=== PATIENT | female | born 1985 | race Hispanic/Latino ===

== ENCOUNTER → 2023-04-12 | Outpatient (REF) | payer OTHER ==
[2023-04-12 17:29] LABS: BASO % 0.3 % (0.0-1.0); EOS # 0.1 10^3/uL (0.0-0.5); HEMATOCRIT 31.1 % (36.0-47.0); HEMOGLOBIN 9.1 g/dl (12.0-15.5); LYMPH # 1.8 10^3/uL (1.5-5.0); LYMPH % 26.1 % (24.0-44.0); MEAN CORPUSCULAR HEMOGLOBIN 20.4 pg (27.0-33.0); MEAN CORPUSCULAR HGB CONC 29.3 g/dl (32.0-36.5); MEAN CORPUSCULAR VOLUME 69.9 fl (80.0-96.0); MONO # 0.6 10^3/uL (0.0-0.8); MONO % 8.2 % (2.0-8.0); NEUTROPHILS # 4.3 10^3/uL (1.5-8.5); NEUTROPHILS % 64.3 % (36.0-66.0); PLATELET COUNT, AUTOMATED 340 10^3/uL (150-450); RED BLOOD COUNT 4.45 10^6/uL (4.00-5.40); WHITE BLOOD COUNT 6.7 10^3/uL (4.0-10.0)
[2023-04-12 17:47] LABS: ALBUMIN 3.8 G/DL (3.2-5.2); ALKALINE PHOSPHATASE 62 U/L (46-116); ALT/SGPT 16 U/L (7.0-40); AST/SGOT 16 U/L (<34); BILIRUBIN,TOTAL 0.4 MG/DL (0.3-1.2); BLOOD UREA NITROGEN 8 MG/DL (9-23); CALCIUM LEVEL 8.7 MG/DL (8.5-10.1); CARBON DIOXIDE LEVEL 24 MMOL/L (20-31); CHLORIDE LEVEL 109 MMOL/L (98-107); GLOMERULAR FILTRATION RATE > 60.0 (>60); GLUCOSE, FASTING 71 MG/DL (60-100); IRON (FE) 11 UG/DL (50-170); PERCENT SATURATION 2.8 % (13.2-45.0); POTASSIUM SERUM 4.5 MMOL/L (3.5-5.1); SODIUM LEVEL 141 MMOL/L (136-145); TOTAL IRON BINDING CAPACITY 395 UG/DL (250-425); TOTAL PROTEIN 7.3 G/DL (5.7-8.2)
[2023-04-12 17:48] LABS: FERRITIN < 0.9 NG/ML (7.3-270.7); FREE T4 0.88 NG/DL (0.89-1.76)
[2023-04-12 17:49] LABS: FOLATE > 24.0 NG/ML (>5.4); THYROID STIMULATING HORMONE 2.052 uIU/ML (0.55-4.78); VITAMIN B12 LEVEL 383 PG/ML (211-911)
[2023-04-12 17:52] LABS: THYROID PEROXIDASE ANTIBODY 505 U/ML (<60.0)
[2023-04-13 11:44] LABS: CHOLESTEROL LEVEL 179 MG/DL (<200); CHOLESTEROL RISK RATIO 3.32 (<5); HDL CHOLESTEROL 53.9 MG/DL (>40); LDL CHOLESTEROL 109.9 MG/DL (<100); NON-HDL-C 125.1 MG/DL; TRIGLYCERIDES LEVEL 76 MG/DL (<150)
[2023-04-13 12:38] LABS: HEMOGLOBIN A1c 5.6 % (4.0-6.0)
== END ==
LOC: M LAB REF 16:17
PROVIDERS: ATTEND Nurse Practitioner Family
DX: E04.9 Nontoxic goiter, unspecified (principal); Z11.1 Encounter for screening for respiratory tuberculosis

== ENCOUNTER → 2023-04-25 | Outpatient (CLI) | payer OTHER | LOC: M WHC 14:56 | PROVIDERS: ATTEND Nurse Practitioner Family | DX: E04.9 Nontoxic goiter, unspecified (principal) ==

== ENCOUNTER → 2023-05-12 | Outpatient (CLI) | payer OTHER ==
[2023-05-12 15:25] LABS: HIV 1&2 SCREEN NEGATIVE (NEGATIVE)
[2023-05-12 15:28] LABS: CHLAMYDIA DNA AMPLIFICATION NEGATIVE (NEGATIVE); GC DNA AMPLIFICATION NEGATIVE (NEGATIVE)
[2023-05-12 15:33] LABS: HEPATITIS B CORE ANTIBODY IGM NEGATIVE (NEGATIVE); HEPATITIS C VIRUS ABY INDEX 0.27 INDEX (<0.8)
== END ==
LOC: M PLALAB 09:47
PROVIDERS: ATTEND Nurse Practitioner Family
DX: Z12.4 Encounter for screening for malignant neoplasm of cervix (principal)

== ENCOUNTER → 2023-07-28 | Outpatient (CLI) | payer OTHER ==
[~2023-07-28] MED LIST: B-12100010 PO; FERR325T19 PO; GARL1000 PO; MAGN250T7 PO
[2023-07-28 13:21] LABS: IMMUNOGLOBULIN A 290.9 MG/DL (40-350)
[2023-07-29 23:16] LABS: TISSUE TRANSGLUTAMINASE IgA <2 U/mL (0-3); TISSUE TRANSGLUTAMINASE IgG 5 U/mL (0-5)
== END ==
LOC: M LAB 11:57
PROVIDERS: ATTEND Nurse Practitioner Family
DX: D50.9 Iron deficiency anemia, unspecified (principal)

== ENCOUNTER 2023-08-02 15:36 | Outpatient (CLI) | payer OTHER ==
[~2023-08-02] VITALS: Ht 170.2 cm; Wt 86.8 kg
[2023-08-02] MEDS: IRON SUCROSE 200 MG in NS 100 ML OVER 1 HR IV ONE (15:51)
[2023-08-02 15:55] VITALS: BP 139/78; O2SAT 100
[2023-08-02] MEDS: diphenhydrAMINE 25MG PO PRIOR TO INFUSION PO ONE (16:09)
[2023-08-02] MEDS: dexameTHASONE 20 MG IV PRIOR TO INFUSION IV ONE (16:10)
[2023-08-02] MEDS: ACETAMINOPHEN 650MG PO PRIOR TO INFUSION PO ONE (16:10)
[2023-08-02 16:46] VITALS: BP 121/83; O2SAT 99
== END 2023-08-02 16:47 ==
LOC: M INFU 15:36
PROVIDERS: ATTEND Internal Medicine Medical Oncology
DX: D50.9 Iron deficiency anemia, unspecified (principal)
CPT/HCPCS: 96365; J1756

== ENCOUNTER 2023-08-09 16:10 | Outpatient (CLI) | payer OTHER ==
[2023-08-09] MEDS: IRON SUCROSE 200 MG in NS 100 ML OVER 1 HR IV ONE (16:27)
[2023-08-09] MEDS ORDERED: ACETAMINOPHEN TAB 650MG DOSE (2X325MG) PO ONE (16:30)
[2023-08-09] MEDS ORDERED: diphenhydrAMINE 25MG CAP PO ONE (16:30)
[2023-08-09] MEDS ORDERED: dexAMETHasone 20MG/5ML VIAL IV ONE (16:30)
[2023-08-09 16:56] VITALS: BP 127/84; O2SAT 98
[2023-08-09 17:29] VITALS: BP 125/88; O2SAT 98
== END 2023-08-09 17:30 | disposition home or self-care (01) ==
LOC: M INFU 16:10
PROVIDERS: ATTEND Internal Medicine Medical Oncology
DX: D50.9 Iron deficiency anemia, unspecified (principal); Z91.013 Allergy to seafood
CPT/HCPCS: 96365; J1756

== ENCOUNTER 2023-08-16 09:10 | Outpatient (CLI) | payer OTHER ==
[~2023-08-16] VITALS: Ht 170.2 cm; Wt 98.8 kg
[2023-08-16 09:10] VITALS: BP 118/75; O2SAT 100
[2023-08-16] MEDS ORDERED: dexAMETHasone 20MG/5ML VIAL IV ONE (09:15)
[2023-08-16] MEDS ORDERED: diphenhydrAMINE 25MG CAP PO ONE (09:15)
[2023-08-16] MEDS ORDERED: ACETAMINOPHEN TAB 650MG DOSE (2X325MG) PO ONE (09:15)
[2023-08-16] MEDS: IRON SUCROSE 200 MG in NS 100 ML OVER 1 HR IV ONE (09:21)
[2023-08-16 10:28] VITALS: BP 112/69; O2SAT 100
== END 2023-08-16 10:30 ==
LOC: M INFU 09:10
PROVIDERS: ATTEND Internal Medicine Medical Oncology
DX: D50.9 Iron deficiency anemia, unspecified (principal)
CPT/HCPCS: 96365; J1756

== ENCOUNTER 2023-08-23 16:25 | Outpatient (CLI) | payer OTHER ==
[~2023-08-23] VITALS: Ht 170.2 cm; Wt 87.3 kg
[2023-08-23] MEDS ORDERED: dexAMETHasone 20MG/5ML VIAL IV ONE (16:30)
[2023-08-23] MEDS ORDERED: diphenhydrAMINE 25MG CAP PO ONE (16:30)
[2023-08-23] MEDS ORDERED: ACETAMINOPHEN TAB 650MG DOSE (2X325MG) PO ONE (16:30)
[2023-08-23] MEDS: IRON SUCROSE 200 MG in NS 100 ML OVER 1 HR IV ONE (16:33)
[2023-08-23 16:42] VITALS: BP 128/82; O2SAT 100
== END 2023-08-23 17:40 | disposition home or self-care (01) ==
LOC: M INFU 16:25
PROVIDERS: ATTEND Internal Medicine Medical Oncology
DX: D50.9 Iron deficiency anemia, unspecified (principal)
CPT/HCPCS: 96365; J1756

== ENCOUNTER 2023-08-30 15:50 | Outpatient (CLI) | payer OTHER ==
[~2023-08-30] VITALS: Ht 157.5 cm; Wt 88.3 kg
[2023-08-30 15:50] VITALS: BP 127/76; O2SAT 100
[2023-08-30] MEDS: ACETAMINOPHEN TAB 650MG DOSE (2X325MG) PO ONE (15:52)
[2023-08-30] MEDS: dexAMETHasone 20MG/5ML VIAL IV ONE (15:53)
[2023-08-30] MEDS: diphenhydrAMINE 25MG CAP PO ONE (15:53)
[2023-08-30] MEDS: IRON SUCROSE 200 MG in NS 100 ML OVER 1 HR IV ONE (15:57)
[2023-08-30 17:05] VITALS: BP 112/67; O2SAT 99
== END 2023-08-30 17:05 | disposition home or self-care (01) ==
LOC: M INFU 15:50
PROVIDERS: ATTEND Internal Medicine Medical Oncology
DX: D50.9 Iron deficiency anemia, unspecified (principal)
CPT/HCPCS: 96365; J1756

== ENCOUNTER → 2024-04-16 | Outpatient (REF) | payer OTHER ==
[~2024-04-16] MED LIST changes: +APPLCAP PO; +ASHW500C PO; +OMEG10002 PO
[2024-04-16 19:32] LABS: CHOLESTEROL LEVEL 186 MG/DL (<200); CHOLESTEROL RISK RATIO 3.45 (<5); HDL CHOLESTEROL 53.9 MG/DL (>40); LDL CHOLESTEROL 116.9 MG/DL (<100); NON-HDL-C 132.1 MG/DL; TRIGLYCERIDES LEVEL 76 MG/DL (<150)
[2024-04-16 19:34] LABS: THYROID STIMULATING HORMONE 2.265 uIU/ML (0.55-4.78)
[2024-04-16 19:37] LABS: HEMOGLOBIN A1c 5.6 % (4.0-6.0)
== END ==
LOC: M LAB REF 17:37
PROVIDERS: ATTEND Nurse Practitioner Family
DX: E66.9 Obesity, unspecified (principal); Z11.9 Encounter for screening for infectious and parasitic diseases, unspecified

== ENCOUNTER 2024-04-24 10:02 | Day surgery (SDC) | payer OTHER ==
[~2024-04-24] VITALS: Ht 170.2 cm; Wt 89.1 kg
[2024-04-24] MEDS ORDERED: LIDOCAINE 2% 100MG/5ML SDV (FOR ANES.) As Ordered ONE (12:26)
[2024-04-24] MEDS ORDERED: propofoL 200 MG/20 ML VIAL As Ordered ONE (12:26)
[2024-04-24] MEDS ORDERED: fentaNYL 100 MCG/2 ML INJECTION As Ordered ONE (12:34)
[2024-04-24 13:10] VITALS: TEMP 97.5
[2024-04-24 13:38] VITALS: BP 96/65; O2SAT 98
== END 2024-04-24 13:40 | disposition home or self-care (01) ==
LOC: M OPP 10:02
PROVIDERS: ATTEND Internal Medicine Gastroenterology
DX: D50.9 Iron deficiency anemia, unspecified (principal); K64.8 Other hemorrhoids; K21.9 Gastro-esophageal reflux disease without esophagitis; Z80.0 Family history of malignant neoplasm of digestive organs; F17.290 Nicotine dependence, other tobacco product, uncomplicated; Z91.013 Allergy to seafood
CPT/HCPCS: 43235; 45378; J3010

== ENCOUNTER → 2024-10-02 | Outpatient (CLI) | payer OTHER, SELFPAY ==
[~2024-10-02] MED LIST changes: +PHEN30CA21 PO
[2024-10-02 16:35] LABS: HEPATITIS B SURFACE ANTIGEN NEGATIVE (NEGATIVE)
[2024-10-02 16:44] LABS: Trichomonas vaginalis (AMP) NOT DETECTED (NEGATIVE)
[2024-10-02 16:48] LABS: HIV 1&2 SCREEN NEGATIVE (NEGATIVE)
[2024-10-02 16:55] LABS: HEPATITIS B CORE ANTIBODY IGM NEGATIVE (NEGATIVE)
[2024-10-02 16:56] LABS: HEPATITIS C VIRUS ABY INDEX 0.06 INDEX (<0.8)
[2024-10-02 17:08] LABS: GC DNA AMPLIFICATION NEGATIVE (NEGATIVE)
[2024-10-04 15:04] LABS: HPV APTIMA Not Detected (Not Detected)
== END ==
LOC: M PLALAB 14:05
PROVIDERS: ATTEND Nurse Practitioner Family
DX: Z12.4 Encounter for screening for malignant neoplasm of cervix (principal)

== ENCOUNTER → 2024-12-31 | Outpatient (CLI) | payer OTHER | LOC: M RAD 08:22 | PROVIDERS: ATTEND Internal Medicine Medical Oncology | DX: D50.9 Iron deficiency anemia, unspecified (principal) ==

== ENCOUNTER → 2025-01-14 | Outpatient (CLI) | payer OTHER ==
[~2025-01-14] MED LIST changes: +E-Z-PAQUE 96% w/w SUSP 176 GM BTL As Ordered ONE
== END ==
LOC: M RAD 11:12
PROVIDERS: ATTEND Physician Assistant Medical
DX: D50.9 Iron deficiency anemia, unspecified (principal)